=== PATIENT | female | born 1990 | race Caucasian/White ===

== ENCOUNTER 2017-07-09 22:48 | Emergency (ER) | payer OTHER ==
[~2017-07-09] VITALS: Ht 162.6 cm; Wt 52.6 kg
--- NOTE | 2017-07-09 23:28 | NUR ---
PT BIB FRIENDS FROM, PT STATES SHE FEELS VERY ANXIOUS S/P DOING ADDEROL COKE, AND DRINKING ALCOHOL LAST NIGHT. PT AOX3 RR EVEN AND UNLABORED. NO SOB NOTED. NAD NOTED. NO NVD AT THIS TIME. PT GOWNED AND PLACED ON MONITOR DR. HICKS AT BEDSIDE FOR EVAL.
[2017-07-09] MEDS ORDERED: IV NS 0.9% 1,000 ML BAG IV ONE (23:30)
[2017-07-09] MEDS ORDERED: LORAZEPAM INJ 2 MG/ML VIAL ONE (23:42)
--- NOTE | 2017-07-09 23:42 | NUR ---
RADIOLOGY AT BEDSIDE FOR XRAY
[2017-07-09 23:49] LABS: BASOPHILS # (AUTO) 0.1 /CMM (0.0-0.2); BASOPHILS % (AUTO) 0.5 % (0.0-2.0); EOSINOPHILS % (AUTO) 0.2 % (0.0-6.0); HEMATOCRIT 41 % (33-45); HEMOGLOBIN 13.3 g/dL (11.5-14.8); LYMPHOCYTES # (AUTO) 1.5 /CMM (0.8-4.8); LYMPHOCYTES % (AUTO) 11.8 % (20.0-44.0); MEAN CORPUSCULAR HEMOGLOBIN 30 PG (26.0-33.0); MEAN CORPUSCULAR HGB CONC 33 g/dl (31.0-36.0); MEAN CORPUSCULAR VOLUME 92 fL (82-100); MONOCYTES # (AUTO) 0.6 /CMM (0.1-1.30); MONOCYTES % (AUTO) 4.3 % (2.0-12.0); NEUTROPHILS # (AUTO) 10.8 /CMM (1.8-8.9); NEUTROPHILS % (AUTO) 83.2 % (43.0-81.0); PLATELET COUNT (AUTO) 223 /CMM (150-450); RDW COEFFICIENT OF VARIATION 13.7 (11.5-15.0); RED BLOOD CELL COUNT(AUTO) 4.41 MIL/uL (4.0-5.2)
[2017-07-09 23:51] LABS: CARBON DIOXIDE 25 mmol/L (21-32); CHLORIDE 102 mmol/L (98-107); CREATININE 0.7 mg/dL (0.6-1.3); GLUCOSE 95 mg/dL (74-106); POTASSIUM 3.7 mmol/L (3.5-5.1); SODIUM SERUM 140 mmol/L (136-145); UREA NITROGEN, BLOOD 10 mg/dL (7-18)
[2017-07-09 23:55] LABS: INR 0.96 (0.87-1.13)
[2017-07-10] LABS: TROPONIN I < 0.017 ng/mL (0.00-0.056)
[2017-07-10] MEDS ORDERED: LORAZEPAM INJ 2 MG/ML VIAL IV ONE
--- NOTE | 2017-07-10 00:30 | NUR ---
DR. HICKS AT BEDSIDE SPEAKING TO PT REGARDING RESULTS
--- NOTE | 2017-07-10 00:35 | NUR ---
IV removed. Catheter intact and site benign. Pressure and 4x4 applied to site. No bleeding noted. Patient discharged to home in stable condition. Written and verbal after care instructions given. Patient verbalizes understanding of instruction. ambulatory with a steady gait. instructed not to drive. pt verbalize understanding.
[2017-07-10 00:36] VITALS: BP 117/67
== END 2017-07-10 00:36 | disposition home or self-care (01) ==
LOC: ER 22:52
DX: F41.9 Anxiety disorder, unspecified (principal); R00.2 Palpitations; F14.90 Cocaine use, unspecified, uncomplicated
CPT/HCPCS: 36415; 71010; 80048; 84484; 85025; 85730; 93005; 96361; 96374; 99285; A4606; J2060; J7030; Z7610